=== PATIENT | male | born 1950 | race Caucasian/White ===

== ENCOUNTER 2017-03-22 11:33 | Emergency (ER) | payer OTHER ==
[~2017-03-22] VITALS: Ht 188 cm; Wt 70.3 kg
[2017-03-22 11:44] VITALS: BP 128/75
--- NOTE | 2017-03-22 11:59 | NUR ---
PT AMBULATED TO BED 12.
[2017-03-22] MEDS ORDERED: NACL 0.9% 1,000 ML IV ONE (12:00)
--- NOTE | 2017-03-22 12:05 | NUR ---
67M [place]ST[place] FROM [facility]ELD C/O [facility] X 1100 TODAY; PER EMY, PT IS A [employer] AND WAS FOUND ON THE FLOOR OF HIS PT'S HOUSE; PT AA&OX4, KATJA AT THIS TIME, BUT STATES " I REMEMBER GOING TO THE BATHROOM, BUT I DON'T REMEMBER FALLING"; BL LUNG SOUNDS CLEAR, RR EVEN/UNLABORED AT THIS TIME; PT NOTED WITH SMALL LACERATION TO LEFT HEAD; NO ACTIVE BLEEDING NOTED TO SITE AT THIS TIME; PT STATES NO PAIN, NO N/V/D AT THIS TIME; SKIN IS WARM/DRY AT THIS TIME; STEADY GAIT; PT RESTING IN BED WITH HOB ELEVATED AND IN LOWEST POSITION; POSITIONED FOR COMFORT; ER MD MADE AWARE OF STATUS. WILL CONTINUE TO MONITOR.
[2017-03-22 13:02] LABS: HEMATOCRIT 49.2 % (36-52); HEMOGLOBIN 15.3 g/dL (12.0-18.0); MEAN CORPUSCULAR HEMOGLOBIN 31 pg (27-31); MEAN CORPUSCULAR HGB CONC 31 g/dL (33-37); MEAN CORPUSCULAR VOLUME 99 fL (80-94); PLATELET COUNT (AUTO) 213 K/uL (140-450); RED BLOOD CELL COUNT(AUTO) 4.99 MIL/uL (4.20-6.10); WHITE BLOOD COUNT (AUTO) 7.8 K/uL (4.8-10.8)
[2017-03-22 13:06] LABS: ANION GAP 12.9 (8-16); CARBON DIOXIDE 30.3 mmol/L (21-32); CHLORIDE 105 mmol/L (98-107); CREATININE 1.1 mg/dL (0.7-1.3); GFR ARICAN-AMERICAN 86 mL/min (>90); GLUCOSE 97 mg/dL (74-106); POTASSIUM 5.2 mmol/L (3.5-5.1); SODIUM SERUM 143 mmol/L (136-145); UREA NITROGEN, BLOOD 23 mg/dL (7-18)
[2017-03-22 13:12] LABS: ALBUMIN 3.6 g/dL (3.4-5.0); ASPARTATE AMINOTRANSFERASE 29 U/L (15-37); TOTAL BILIRUBIN 0.8 mg/dL (0.0-1.0)
[2017-03-22 13:15] LABS: ACETAMINOPHEN < 0.5 ug/ml (10-30); SALICYLATE < 2.8 mg/dL (2.8-20.0)
[2017-03-22 13:19] LABS: EOSINOPHILS % (MANUAL) 3 % (0-4); MONOCYTES % (MANUAL) 5 % (5-12)
[2017-03-22 13:20] LABS: LYMPHOCYTES % (MANUAL) 17 % (20-46)
--- NOTE | 2017-03-22 15:10 | NUR ---
IV removed, catheter intact and site benign. Applied folded 4x4 gauze and tape to stop bleeding. PT TOLERATED PROCEDURE WELL.
[2017-03-22 15:12] VITALS: BP 120/77
--- NOTE | 2017-03-22 15:12 | NUR ---
Patient discharged with v/s stable. Written and verbal after care instructions given and explained. Patient verbalized understanding. Ambulatory with steady gait. All questions addressed prior to discharge. Advised to follow up with PMD.
[2017-03-22 18:18] LABS: BARBITURATE, URINE NEG. ng/ml (NEG <=200); BENZODIAZEPINE, URINE NEG. ng/mL (NEG <=200); CANNABINOID, URINE NEG. ng/mL (NEG <=50); COCAINE, URINE NEG. ng/mL (NEG <=300); OPIATE, URINE NEG. ng/mL (NEG <=2000); PHENCYCLIDINE SCREEN,URINE NEG. ng/mL (NEG <=25)
== END 2017-03-22 14:16 | disposition home or self-care (01) ==
LOC: MED 11:33
DX: R55 Syncope and collapse (principal); R03.0 Elevated blood-pressure reading, without diagnosis of hypertension; Z88.0 Allergy status to penicillin
CPT/HCPCS: 36415; 70450; 80053; 80305; 85025; 90471; 90715; 93005; 96360; 96361; 99285; G0480; G0482; J7030